=== PATIENT | male | born 1975 | race Caucasian/White ===

== ENCOUNTER 2019-10-10 10:22 | Emergency (ER) | payer OTHER ==
[~2019-10-10] VITALS: Ht 190.5 cm; Wt 114.8 kg
--- NOTE | 2019-10-10 10:22 | NUR ---
PT BIB SELF C/O WITNESSED SEIZURE EPISODE PER PT LASTED 1 MIN. PT IS AAOX4, NOT IN RESPIRATORY DISTRESS, HOOKED TO GUARD DRIVER. KEPT RESTED AND COMFORTABLE. SEIZURE PRECAUTION INITIATED. WILL CONTINUE TO MONITOR.
--- NOTE | 2019-10-10 10:36 | NUR ---
SEEN AND EXAMINED BY .
[2019-10-10] MEDS ORDERED: LORAZEPAM INJ 2 MG/ML VIAL ONE (10:41)
--- NOTE | 2019-10-10 10:51 | NUR ---
CALLED [facility] NO ANSWER.
[2019-10-10] MEDS ORDERED: LORAZEPAM INJ 2 MG/ML VIAL IM ONE (11:00)
--- NOTE | 2019-10-10 11:11 | NUR ---
CALLED [facility]. OBTAINED PT INFO AND WILL CALL BACK.
[2019-10-10 11:40] VITALS: BP 129/81
--- NOTE | 2019-10-10 11:40 | NUR ---
Patient discharged to home in stable condition. Written and verbal after care instructions given. Patient verbalizes understanding of instruction.
== END 2019-10-10 11:40 | disposition home or self-care (01) ==
LOC: ER 10:32
DX: R56.9 Unspecified convulsions (principal); Z86.19 Personal history of other infectious and parasitic diseases; Z88.8 Allergy status to other drugs, medicaments and biological substances
CPT/HCPCS: 96372; 99283; J2060